=== PATIENT | female | born 1995 | race American Indian/Alaskan Native ===

== ENCOUNTER 2024-07-06 19:50 | Emergency (ER) | payer OTHER ==
[~2024-07-06] VITALS: Ht 149.9 cm; Wt 49.9 kg
[2024-07-06] MEDS ORDERED: 0.9 % SODIUM CHLORIDE 1,000 ML IV SCH (20:30)
[2024-07-06 20:38] VITALS: BP 83/59; O2SAT 98
[2024-07-06] MEDS ORDERED: PROZAC10 MG (20:41)
[2024-07-06] MEDS ORDERED: WELLBUTRIN SR100 MG (20:41)
[2024-07-06 21:09] LABS: BASO % 0.3 % (0.1-1.2); EOS % 1.1 % (0.7-7.0); HEMATOCRIT 32.2 % (34.1-44.9); HEMOGLOBIN 10.6 g/dL (11.2-15.7); LYMPH # 1.61 (1.18-3.74); MEAN CORPUSCULAR HEMOGLOBIN 28.1 pg (25.6-32.2); MONO # 0.73 (0.24-0.82); MONO % 7.7 % (4.7-12.5); NEUT # 6.97 (1.56-6.13); NEUT % 73.7 % (34.0-71.1); PLATELET COUNT 149 K/uL (163-369); RED BLOOD COUNT 3.77 M/uL (3.93-5.22); RED CELL DISTRIBUTION WIDTH 14.7 % (11.6-14.4)
[2024-07-06 21:36] LABS: ALBUMIN 3.5 gm/dL (3.4-5.0); BILIRUBIN TOTAL 0.32 mg/dL (0.3-1.2); CALCIUM 8.5 mg/dL (8.5-10.1); CREATININE SERUM 0.88 mg/dL (0.55-1.02); GFR 76.51; GLOBULINA 3.3 G/DL (2.4-3.5); POTASSIUM 3.96 mEq/L (3.5-5.1); TOTAL PROTEIN 6.8 gm/dL (6.4-8.2)
[2024-07-06 21:44] LABS: PH,URINE 5.5 (5.0-8.0); URINE APPEARANCE Clear; URINE BILIRRUBIN Negative (NEGATIVE); URINE BLOOD Negative; URINE COLOR Yellow; URINE GLUCOSE Negative (NEGATIVE); URINE KETONE Trace (NEGATIVE); URINE LEUKOCYTE Trace; URINE NITRATE Negative; URINE PROTEIN 30 (NEGATIVE)
[2024-07-06 21:48] LABS: URINE BACTERIA 2641.2 uL (0.0-1933); URINE CAST 4.86 uL (0.0-1.40); URINE EPITHELIAL CELLS 24.6 uL (0.0-38.8); URINE RBC 2.7 uL (0.0-20.8); URINE WBC 19.6 uL (0.0-23.2)
== END 2024-07-06 23:14 | disposition home or self-care (01) ==
LOC: ER 19:50
PROVIDERS: General Practice
DX: R55 Syncope and collapse (principal)